=== PATIENT | female | born 2000 | race Caucasian/White ===

== ENCOUNTER 2024-07-23 05:57 | Inpatient (IN) | payer OTHER ==
[~2024-07-23] VITALS: Ht 162.6 cm; Wt 64.9 kg
[2024-07-23] VITALS (8 sets, daily range): BP systolic 102–134; BP diastolic 60–75
[2024-07-23] MEDS ORDERED: RINGERS SOLUTION,LACTATED 1,000 ML IV SCH (06:15)
[2024-07-23] MEDS ORDERED: PRENATABS RX T1 EACH PO (06:36)
[2024-07-23 07:18] LABS: HEMATOCRIT 34.2 % (36.0-45.00); HEMOGLOBIN 12.2 g/dL (12.0-15.00); MEAN CELL VOLUME 91.8 fL (80.00-100.00); MEAN CORPUSCULAR HEMOGLOBIN 32.8 pg (27.00-32.0); MEAN CORPUSCULAR HGB CONC 35.7 g/dl (32.0-36.0); PLATELET COUNT 217 K/uL (150-450); RED BLOOD COUNT 3.73 M/uL (4.00-6.00); RED CELL DISTRIBUTION WIDTH 12.6 % (11.5-14.5)
[2024-07-23] MEDS ORDERED: OXYTOCIN 500 ML IV ONE (08:00)
[2024-07-23 08:04] LABS: INR 0.94; PARTIAL THROMBOPLASTIN TIME 30.5 SECONDS (22.0-34.0); PROTHROMBIN TIME 10.3 SECONDS (9.0-11.5)
[2024-07-23] MEDS ORDERED: OXYTOCIN 20 UNITS/1000ML RL PIGGYBAG IV ONE (16:39)
[2024-07-23] MEDS ORDERED: CHLORHEXIDINE GLUCONATE 120 ML BOTTLE TOP ONE (16:39)
[2024-07-23] MEDS ORDERED: ERYTHROMYCIN BASE OPHT 1GM EACH TUBE OP ONE ×2 (16:39→18:00)
[2024-07-23] MEDS ORDERED: LIDOCAINE HCL 1% 10ML VIAL ONE (16:39)
[2024-07-23] MEDS ORDERED: MORPHINE SULFATE 4 MG/ML VIAL IV ONE (16:45)
[2024-07-23] MEDS ORDERED: NALOXONE HCL 0.4 MG/ML AMPUL ONE (16:54)
[2024-07-23] MEDS ORDERED: CHLORHEXIDINE GLUCONATE 120 ML BOTTLE TOP SCH (17:30)
[2024-07-23] MEDS ORDERED: OXYTOCIN 1,000 ML IV SCH (17:30)
[2024-07-23] MEDS ORDERED: LIDOCAINE HCL 1% 10ML VIAL IJ ONE (18:00)
[2024-07-23] MEDS ORDERED: NALOXONE HCL 0.4 MG/ML AMPUL IM ONE (18:00)
[2024-07-23] MEDS ORDERED: ACETAMINOPHEN 500 MG GEL..CAP PO SCH (21:00)
[2024-07-24] VITALS: BP 110/60
[2024-07-24 06:57] LABS: HEMATOCRIT 26.5 % (36.0-45.00); MEAN CELL VOLUME 93.4 fL (80.00-100.00); MEAN CORPUSCULAR HGB CONC 33.8 g/dl (32.0-36.0); PLATELET COUNT 217 K/uL (150-450); RED BLOOD COUNT 2.83 M/uL (4.00-6.00); RED CELL DISTRIBUTION WIDTH 12.4 % (11.5-14.5)
[2024-07-24 07:12] LABS: MEAN CORPUSCULAR HEMOGLOBIN 31.8 pg (27.00-32.0)
[2024-07-24 08:40] VITALS: BP 117/67
[2024-07-24] MEDS ORDERED: IRON FUM,PS/FOLIC/BCOMP,C NO.9 1 CAP CAPSULE PO SCH (09:00)
[2024-07-24 16:33] VITALS: BP 101/73
[2024-07-25 01:29] VITALS: BP 98/65
[2024-07-25 07:31] VITALS: BP 90/50
== END 2024-07-25 17:22 | disposition home or self-care (01) | DRG 807 ==
LOC: LDR 05:57 → OB/GYN 17:43 → SURH 07-29 09:45
PROVIDERS: Obstetrics & Gynecology; ADMIT Obstetrics & Gynecology; ATTEND Obstetrics & Gynecology
PROC: 10E0XZZ Delivery of Products of Conception, External Approach (ICD-10-PCS; principal; 2024-07-23)
PROC: 4A1HXCZ Monitoring of Products of Conception, Cardiac Rate, External Approach (ICD-10-PCS; 2024-07-23)
DX: O80 Encounter for full-term uncomplicated delivery (principal); Z37.0 Single live birth; Z3A.39 39 weeks gestation of pregnancy